=== PATIENT | female | born 1970 | race Caucasian/White ===

== ENCOUNTER → 2016-06-14 | Outpatient (CLI) | payer OTHER ==
--- NOTE | ~2016-06-14 | EXE ---
[facility] [address] [place] [address] STRESS ECHOCARDIOGRAM Name: IRIZARRYMELONIE Room #: [facility] [id number] Admission: 06/14/16 Attend Phys: Bobby Lama Discharge: Date of : 74 Date of Service: 06/16/16 1435 Report #: [id number] THIS REPORT FOR: //name// APPROVED REPORT Exam: Stress Echocardiogram Reason for Exam: Chest pain , Dyspnea Patient Location: Out-Patient Stress Nurse: Latasha Moody RN HR: 53 bpm Rhythm: NSR Medical History Allergies: Penicillin, Sulfa Procedure The patient underwent an Exercise Stress Test using the Edison Protocol. Blood pressure, heart rate, and EKG were monitored. An Echocardiogram was performed by system support technician in four stages in quad fashion. At peak stress, four selected images were obtained and placed side by side with resting images for comparison. Testing Details Test: Exercise stress testing was performed using a Edison protocol. HR Resting HR: 53 bpm Max Heart Rate (APMHR): 176 bpm Max HR Achieved: 171 bpm Target HR (85% APMHR): 149 bpm % of APMHR: 97 Recovery HR: 83 bpm HR response to stress: Normal HR response to stress BP Resting BP: 117/78 mmHg Max BP: 138/84 mmHg Recovery BP: 154/80 mmHg ECG Clinical Reason for Termination: Moderate fatigue, dyspnea Exercise duration: 10mins 14secs min Exercise capacity: 13.70 METs [facility] [address] [place] [address] STRESS ECHOCARDIOGRAM Name: MELONIE IRIZARRY Room #: REG [facility]#: [id number] Admission: 06/14/16 Attend Phys: Bobby Lama Discharge: Date of : 74 Date of Service: 06/16/16 143 Report #: [id number] Stress ECG Conclusion 1. SUBJECTIVELY NEGATIVE FOR ISCHEMIA 2. ELECTROCARDIOGRAPHICALLY NEGATIVE FOR ISCHEMIA 3. ADEQUATE FUNCTIONAL CAPACITY Pre-Stress Echo The resting Echocardiogram showed normal left ventricular contractility with an estimated Ejection Fraction of about 50-55%. Mild to moderate MR, Trivial AI, trace to mild TR Post-Stress Echo The stress Echocardiogram showed normal left ventricular contractility with an estimated Ejection Fraction of about 60%. Clinical Normal augmentation of myocardial wall segments using a 17 segment model. Conclusion Clinical Response: Non-ischemic Stress ECG Response: Non-ischemic Stress Echo Images: Non-ischemic Other Information Study Quality: Good <ELECTRONICALLY SIGNED> By: Bobby Farmer MD 06/16/161434 34 34 Bobby Farmer MD /INF
== END ==
LOC: CV 09:58
DX: R06.02 Shortness of breath (principal)